=== PATIENT | female | born 1960 | race Caucasian/White ===

== ENCOUNTER 2025-07-14 14:00 | Outpatient (RCR) | payer OTHER, MEDICARE, SELFPAY | END 2025-08-14 07:57 | disposition home or self-care (01) | LOC: HO.PTCHIC 14:00 | PROVIDERS: PCP Nurse Practitioner Adult Health; Visit Provider Internal Medicine | DX: S32.010D Wedge compression fracture of first lumbar vertebra, subsequent encounter for fracture with routine healing (principal) | CPT/HCPCS: 97110; 97162 ==